=== PATIENT | female | born 1965 | race Caucasian/White ===

== ENCOUNTER 2021-02-23 00:26 | Emergency (ER) | payer OTHER ==
[~2021-02-23] VITALS: Ht 167.6 cm; Wt 77.1 kg
[2021-02-23] MEDS ORDERED: LACTATED RINGERS 1,000 ML IV ONE ×2 (00:50→04:30)
[2021-02-23 01:05] VITALS: BP 115/68
--- NOTE | 2021-02-23 02:21 | NUR ---
PT LUCIANA. TAKEN TO [facility]
--- NOTE | 2021-02-23 02:30 | NUR ---
55 YO F PAMELAA FROM [facility] WITH C/C OF HYPERGLYCEMIA, PER EMS BLOOD SUGAR WAS TOO HIGH TO READ AT FACILITY. EMS REPORTS BS TRENDING DOWN AT ROUTE. BS NOW IS 315. A&[address]3. HX:[id number] NKA
--- NOTE | 2021-02-23 03:08 | NUR ---
Dr. Heller examining patient.
[2021-02-23 03:31] LABS: BASOPHILS # (AUTO) 0.1 K/uL (0.00-0.22); BASOPHILS % (AUTO) 0.5 % (0.0-2.0); EOSINOPHILS # (AUTO) 0.1 K/uL (0-0.4); EOSINOPHILS % (AUTO) 0.9 % (0.0-4.0); HEMATOCRIT 33.4 % (36-48); LYMPHOCYTES % (AUTO) 18.1 % (20.5-51.1); MEAN CORPUSCULAR HEMOGLOBIN 30 pg (27-31); MEAN CORPUSCULAR HGB CONC 33 g/dL (33-37); MEAN CORPUSCULAR VOLUME 90.6 fL (80-94); MONOCYTES # (AUTO) 1.4 K/uL (0.8-1.0); MONOCYTES % (AUTO) 12.2 % (1.7-9.3); NEUTROPHILS # (AUTO) 7.7 K/uL (1.8-7.7); NEUTROPHILS % (AUTO) 68.3 % (42.2-75.2); PLATELET COUNT (AUTO) 277 K/uL (140-450); RED BLOOD CELL COUNT(AUTO) 3.69 MIL/uL (4.20-5.40); RED CELL DISTRIBUTION WIDTH 17.3 % (11.6-13.7); WHITE BLOOD COUNT (AUTO) 11.3 K/uL (4.8-10.8)
[2021-02-23] MEDS ORDERED: METOCLOPRAMIDE 10 MG/2 ML INJ VIAL IVP ONE (03:45)
[2021-02-23] MEDS ORDERED: diphenhydrAMINE 50 MG/ML VIAL IVP ONE (03:45)
--- NOTE | 2021-02-23 04:00 | NUR ---
URINE COLLECTED AND SENT TO LAB.
[2021-02-23 04:07] LABS: APPEARANCE,URINE HAZY (CLEAR); BILIRUBIN,URINE 2+ (NEGATIVE); BLOOD, URINE NEGATIVE (NEGATIVE); COLOR,URINE YELLOW (YELLOW); LEUKOCYTE ESTERASE ,URINE NEGATIVE (NEGATIVE); NITRITE, URINE NEGATIVE (NEGATIVE); UGLUCOSE 3+ (NEGATIVE)
[2021-02-23 04:29] LABS: ALBUMIN 3.1 g/dL (3.4-5.0); ANION GAP 14.5 (8-16); CARBON DIOXIDE 26.8 mmol/L (21-32); CREATININE 1.3 mg/dL (0.6-1.3); MAGNESIUM 1.7 mg/dL (1.8-2.4); POTASSIUM 4.3 mmol/L (3.5-5.1); TOTAL BILIRUBIN 0.7 mg/dL (0.0-1.0)
--- NOTE | 2021-02-23 07:00 | NUR ---
Dr. Arango examining patient.
--- NOTE | 2021-02-23 07:10 | NUR ---
RT AT BEDSIDE.
--- NOTE | 2021-02-23 07:37 | NUR ---
Pt report given to CARLOS RODRIGUEZ. Transfer of care at this time.
[2021-02-23 13:05] VITALS: BP 147/88
--- NOTE | 2021-02-23 13:05 | NUR ---
Patient discharged with v/s stable. Written and verbal after care instructions given and explained. Patient alert, oriented and verbalized understanding of instructions. Ambulance Transport with by caregiver. All questions addressed prior to discharge. ID band removed. Patient advised to follow up with PMD.NO Rx given. Patient educated on indication of medication including possible reaction and side effects. Opportunity to ask questions provided and answered.
== END 2021-02-23 13:05 ==
LOC: MED 00:26
DX: E11.65 Type 2 diabetes mellitus with hyperglycemia (principal); Z20.822 Contact with and (suspected) exposure to COVID-19; E86.0 Dehydration; N28.9 Disorder of kidney and ureter, unspecified; R09.02 Hypoxemia
CPT/HCPCS: 36415; 71045; 80053; 81003; 82009; 83735; 83880; 84484; 85025; 87426; 93005; 96361; 96374; 96375; 99285; J1200; J2765; J7120